=== PATIENT | female | born 1995 | race African-American/Black ===

== ENCOUNTER 2017-04-24 19:24 | Emergency (ER) | payer SELFPAY ==
[2017-04-24] MEDS ORDERED: OXYCODONE-ACETAMINOPHEN 5-325 MG TABLET PO ONE (20:29)
[2017-04-24] MEDS ORDERED: LIDOCAINE 2% JELLY 5 ML TUBE TOP ONE (20:29)
[2017-04-24] MEDS ORDERED: AMOXICILLIN TRIHYDRATE 500 MG CAPSULE PO ONE (20:29)
--- NOTE | 2017-04-24 20:35 | ER Document Report ---
ED Oral Problem - General Chief Complaint: Toothache Stated Complaint: TOOTHACHE Time Seen by Provider: 04/24/17 20:29 Mode of Arrival: Ambulatory Information source: Patient Notes: Patient is a 22-year-old female who presents to the ER today for tooth pain to the upper left tooth #12, stating that she has a "hole in it." Patient admits to a little bit of swelling but no discharge. She states that she has been alternating Tylenol and Motrin without relief. She has also been using heating packs. She does not have a dentist that she just moved to the area. She denies any fevers or chills. TRAVEL OUTSIDE OF THE [place] IN LAST 30 DAYS: No Past Medical History - General Information source: Patient - Social History Smoking Status: Unknown if Ever Smoked Family History: Reviewed & Not Pertinent Review of Systems - Review of Systems Constitutional: No symptoms reported EENT: See HPI Cardiovascular: No symptoms reported Respiratory: No symptoms reported Gastrointestinal: No symptoms reported Genitourinary: No symptoms reported Female Genitourinary: No symptoms reported Musculoskeletal: No symptoms reported Skin: No symptoms reported Hematologic/Lymphatic: No symptoms reported Neurological/Psychological: No symptoms reported Physical Exam - Vital signs Vitals: Temp Pulse Resp BP Pulse Ox 98.4 F 78 16 120/74 100 04/24/17 19:28 04/24/17 19:28 04/24/17 19:28 04/24/17 19:28 04/24/17 19:28 - Notes Notes: PHYSICAL EXAMINATION: GENERAL: Well-appearing and in no acute distress. HEAD: Atraumatic, normocephalic. EYES: Pupils equal round and reactive to light, extraocular movements intact, sclera anicteric, conjunctiva are normal. ENT: ear canals without erythema or foreign body, TMs pearly story with good bony landmarks, nares patent, oropharynx clear without exudates. Moist mucous membranes. Poor dentition, cavity to the left upper tooth #12 NECK: Normal range of motion, supple without lymphadenopathy LUNGS: CTAB and equal. No wheezes rales or rhonchi. HEART: Regular rate and rhythm without murmurs EXTREMITIES: Normal range of motion, no pitting edema. No cyanosis. NEUROLOGICAL: Cranial nerves grossly intact. Normal sensory/motor exams. PSYCH: Normal mood, normal affect. SKIN: Warm, Dry, normal turgor, no rashes or lesions noted Course - Re-evaluation Re-evalutation: 04/24/17 20:32 Patient sent home with lidocaine to apply topically to the area and I will start her on amoxicillin. Patient to follow-up with dentist. I will give her dentist in the area. - Vital Signs Vital signs: Temp Pulse Resp BP Pulse Ox 98.4 F 104 H 18 123/79 99 04/24/17 21:01 04/24/17 21:01 04/24/17 21:01 04/24/17 21:01 04/24/17 21:01 Discharge - Discharge Clinical Impression: Tooth pain Condition: Stable Disposition: HOME, SELF-CARE Instructions: Toothache ([facility]) Additional Instructions: Return immediately for any new or worsening symptoms. Follow up with dentist, call tomorrow to make followup appointment. Prescriptions: Amoxicillin 500 mg PO TID #30 capsule Benzocaine [Orajel] 1 applic MM DAILY PRN #1 tube PRN Reason: Referrals: [facility] [Provider Group] - Follow up as needed
[2017-04-24 21:02] VITALS: BP 123/79
== END 2017-04-24 21:01 | disposition home or self-care (01) ==
LOC: ER 19:24
DX: K08.89 Other specified disorders of teeth and supporting structures (principal)
CPT/HCPCS: 99282

== ENCOUNTER 2017-06-19 20:58 | Emergency (ER) | payer MEDICAID ==
[2017-06-19] MEDS ORDERED: METOCLOPRAMIDE HCL 10 MG TABLET PO ONE (21:19)
[2017-06-19 21:51] LABS: APPEARANCE,URINE CLEAR; BILIRUBIN,URINE NEGATIVE (NEGATIVE); COLOR,URINE YELLOW; GLUCOSE, URINE NEGATIVE (NEGATIVE); KETONES,URINE NEGATIVE (NEGATIVE); LEUKOCYTE ESTERASE,URINE NEGATIVE (NEGATIVE); NITRITE,URINE NEGATIVE (NEGATIVE); PROTEIN,URINE NEGATIVE (NEGATIVE); URINE SPECIFIC GRAVITY 1.036
[2017-06-19] MEDS ORDERED: ONDANSETRON ODT 4 MG TAB (6 TAB/ER DISP) PO PRN (22:44)
--- NOTE | 2017-06-19 22:45 | ER Document Report ---
ED General - General Chief Complaint: Vomiting Stated Complaint: VOMITING,STOMACH PAIN Time Seen by Provider: 06/19/17 21:14 TRAVEL OUTSIDE OF THE [place] IN LAST 30 DAYS: No - HPI Patient complains to provider of: Vomiting nausea Notes: Patient coming in for acute onset of nausea vomiting. Patient states she has been unable tolerate anything today. As I walked into the examination room patient is drinking rodney stoney. Patient states lower abdominal pain and where she is or not. Denies any dysuria or vaginal bleedingDenies fevers chills diarrhea and denies any recent antibiotics - Related Data Allergies/Adverse Reactions: acetaminophen [From Vicodin] Allergy (Verified 06/19/17 20:59) aspirin Allergy (Verified 06/19/17 20:59) hydrocodone [From Vicodin] Allergy (Verified 06/19/17 20:59) Past Medical History - Social History Smoking Status: Unknown if Ever Smoked Family History: Reviewed & Not Pertinent Patient has suicidal ideation: No Patient has homicidal ideation: No Renal/ Medical History: Denies: Hx Peritoneal Dialysis Review of Systems - Review of Systems Constitutional: No symptoms reported EENT: No symptoms reported Cardiovascular: No symptoms reported Respiratory: No symptoms reported Gastrointestinal: Nausea, Vomiting Genitourinary: No symptoms reported Female Genitourinary: No symptoms reported Musculoskeletal: No symptoms reported Skin: No symptoms reported Hematologic/Lymphatic: No symptoms reported Neurological/Psychological: No symptoms reported -: Yes All other systems reviewed and negative Physical Exam - Vital signs Vitals: Temp Pulse Resp BP Pulse Ox 98.0 F 72 16 127/71 H 100 06/19/17 21:03 06/19/17 21:03 06/19/17 21:03 06/19/17 21:03 06/19/17 21:03 Interpretation: Normal - General General appearance: Appears well, Alert - HEENT Head: Normocephalic, Atraumatic Eyes: Normal Pupils: PERRL - Respiratory Respiratory status: No respiratory distress Chest status: Nontender Breath sounds: Normal Chest palpation: Normal - Cardiovascular Rhythm: Regular Heart sounds: Normal auscultation Murmur: No - Abdominal Inspection: Normal Distension: No distension Bowel sounds: Normal Tenderness: Nontender Organomegaly: No organomegaly - Back Back: Normal, Nontender - Extremities General upper extremity: Normal inspection, Nontender, Normal color, Normal ROM , Normal temperature General lower extremity: Normal inspection, Nontender, Normal color, Normal ROM , Normal temperature, Normal weight bearing. No: Misael's sign - Neurological Neuro grossly intact: Yes Cognition: Normal Orientation: AAOx4 Leyla Coma Scale Eye Opening: Spontaneous [place] Coma Scale Verbal: Oriented Leyla Coma Scale Motor: Obeys Commands Leyla Coma Scale Total: 15 Speech: Normal Motor strength normal: LUE, RUE, LLE, RLE Sensory: Normal - Psychological Associated symptoms: Normal affect, Normal mood - Skin Skin Temperature: Warm Skin Moisture: Dry Skin Color: Normal Course - Re-evaluation Re-evalutation: 06/22/17 23:10 Initially patient stated she would not be able to give urine however afterwards patient was able to pulmonary reason for laboratory studies or check hCG. Urine hCG became negative. More likely patient has a viral etiology of abdominal exam benign patient discharged home. - Vital Signs Vital signs: Temp Pulse Resp BP Pulse Ox 98.0 F 75 20 127/56 H 98 06/19/17 21:03 06/19/17 23:25 06/19/17 23:25 06/19/17 23:25 06/19/17 23:25 - Laboratory Result Diagrams: 06/19/17 22:07 06/19/17 22:07 Laboratory results interpreted by me: 06/19/17 21:30 Urine Urobilinogen 2.0 H Discharge - Discharge Clinical Impression: Nausea & vomiting Qualifiers: Vomiting type: unspecified Vomiting Intractability: unspecified Qualified Code( s): R11.2 - Nausea with vomiting, unspecified Condition: Good Disposition: HOME, SELF-CARE Instructions: Vomiting ([facility]) Additional Instructions: Take medication as prescribed. Do believe her symptoms is more viral related. You are not . Return to ER symptoms worsen. Prescriptions: Metoclopramide HCl [Reglan] 5 mg PO Q6 #30 tablet Ondansetron [Zofran Odt] 4 mg PO Q6 PRN #30 tab.rapdis PRN Reason: For Nausea/Vomiting
[2017-06-19 23:26] VITALS: BP 127/56
== END 2017-06-19 23:25 | disposition home or self-care (01) ==
LOC: ER 20:58
DX: R11.2 Nausea with vomiting, unspecified (principal); R10.30 Lower abdominal pain, unspecified; Z32.02 Encounter for pregnancy test, result negative; Z88.6 Allergy status to analgesic agent; Z88.5 Allergy status to narcotic agent
CPT/HCPCS: 99284; 36415; 81025; 81001; J3490

== ENCOUNTER 2017-10-01 17:10 | Emergency (ER) | payer MEDICAID ==
[2017-10-01] MEDS ORDERED: LIDOCAINE 2% VISCOUS SOLN 20 ML UDCUP PO ONE (17:46)
[2017-10-01] MEDS ORDERED: MAG HYDROX/AL HYDROX/SIMETH SUSP 30 ML UDCUP PO ONE (17:46)
--- NOTE | 2017-10-01 17:46 | ER Document Report ---
ED General - General Chief Complaint: Abdominal Pain Stated Complaint: STOMACH PAIN Time Seen by Provider: 10/01/17 17:36 Notes: 22-year-old female here with complaints of burning sensation in her throat that started 3 days ago. The sensation is worse in the morning when she wakes up and immediately after drinking coffee. It also became worse after eating spaghetti with tomato sauce. She has a history of acid reflux but has not had it in 7 years. She also complains of some lower abdominal pain and back pain as well as urinary frequency. Denies any other symptoms. TRAVEL OUTSIDE OF THE [place] IN LAST 30 DAYS: No - Related Data Allergies/Adverse Reactions: acetaminophen [From Vicodin] Allergy (Verified 10/01/17 17:13) aspirin Allergy (Verified 10/01/17 17:13) hydrocodone [From Vicodin] Allergy (Verified 10/01/17 17:13) Past Medical History - Social History Smoking Status: Never Smoker Chew tobacco use (# tins/day): No Frequency of alcohol use: Occasional Drug Abuse: None Family History: Reviewed & Not Pertinent Patient has suicidal ideation: No Patient has homicidal ideation: No Renal/ Medical History: Denies: Hx Peritoneal Dialysis Past Surgical History: Reports: Hx Section Review of Systems - Review of Systems Notes: See history of present illness for pertinent positive review of systems; otherwise all review of systems have been reviewed and are negative Physical Exam - Vital signs Vitals: Temp Pulse Resp BP Pulse Ox 99.1 F 81 16 126/71 H 100 10/01/17 17:16 10/01/17 17:16 10/01/17 17:16 10/01/17 17:16 10/01/17 17:16 - Notes Notes: PHYSICAL EXAMINATION: GENERAL: Well-appearing and in no acute distress. HEAD: Atraumatic, normocephalic. EYES: Pupils equal round and reactive to light, extraocular movements intact, sclera anicteric, conjunctiva are normal. ENT: nares patent, oropharynx clear without exudates. Moist mucous membranes. NECK: Normal range of motion, supple without lymphadenopathy LUNGS: CTAB and equal. No wheezes rales or rhonchi. HEART: Regular rate and rhythm without murmurs ABDOMEN: Soft, no tenderness. No facial grimacing/wincing upon palpation. No guarding, no rebound. EXTREMITIES: Normal range of motion, no pitting edema. No cyanosis. NEUROLOGICAL: Cranial nerves grossly intact. Normal sensory/motor exams. PSYCH: Normal mood, normal affect. SKIN: Warm, Dry, normal turgor, no rashes or lesions noted Course - Re-evaluation Re-evalutation: 10/01/17 18:13 MEDICAL DECISION MAKING: Concern for acid reflux versus gastritis versus UTI Urinalysis does not show any findings for infection Patient has been given GI cocktail with prescription Pepcid Instructed follow-up PCP next day or few Patient understands and agrees to the plan of care - Vital Signs Vital signs: Temp Pulse Resp BP Pulse Ox 99.1 F 81 16 126/71 H 100 10/01/17 17:16 10/01/17 17:16 10/01/17 17:16 10/01/17 17:16 10/01/17 17:16 - Laboratory Laboratory results interpreted by me: 10/01/17 17:43 Urine Urobilinogen 2.0 H Discharge - Discharge Clinical Impression: Acid reflux Qualifiers: Esophagitis presence: esophagitis presence not specified Qualified Code(s): K21.9 - Gastro-esophageal reflux disease without esophagitis Condition: Good Disposition: HOME, SELF-CARE Additional Instructions: You were seen in the emergency department at [facility]. The urine did not show any infection. Cut down on the caffeine intake and avoid the things that trigger your acid reflux. Start taking the prescribed acid reducing medication. Please followup with your primary physician in the next few days for further management/evaluation. Please return to the emergency department for worsening of symptoms or any symptom that you deem to be concerning or life-threatening. Thank you for allowing us to be part of your care. You were seen in the ER and this documentation serves as your work/school note for your visit this evening. Prescriptions: Famotidine [Pepcid 20 mg Tablet] 20 mg PO DAILY #12 tablet
[2017-10-01 18:04] LABS: APPEARANCE,URINE CLEAR; BILIRUBIN,URINE NEGATIVE (NEGATIVE); COLOR,URINE YELLOW; GLUCOSE, URINE NEGATIVE (NEGATIVE); KETONES,URINE NEGATIVE (NEGATIVE); LEUKOCYTE ESTERASE,URINE NEGATIVE (NEGATIVE); NITRITE,URINE NEGATIVE (NEGATIVE); PROTEIN,URINE NEGATIVE (NEGATIVE); URINE SPECIFIC GRAVITY 1.024
[2017-10-01 18:15] VITALS: BP 117/68
== END 2017-10-01 18:22 | disposition home or self-care (01) ==
LOC: ER 17:10
DX: K21.9 Gastro-esophageal reflux disease without esophagitis (principal); R10.30 Lower abdominal pain, unspecified; M54.9 Dorsalgia, unspecified; R35.0 Frequency of micturition
CPT/HCPCS: 99284; 81025; 81001; J3490 ×2

== ENCOUNTER 2017-12-02 07:10 | Emergency (ER) | payer MEDICAID ==
[2017-12-02] MEDS ORDERED: NORMAL SALINE 1000 ML 1,000 ML IV ONE (08:46)
[2017-12-02] MEDS ORDERED: ONDANSETRON HCL INJ/PF 4 MG/2 ML SDV IV ONE (08:46)
--- NOTE | 2017-12-02 08:48 | ER Document Report ---
ED General - General Chief Complaint: Nausea/Vomiting Stated Complaint: VOMITING/LOW BACK PAIN Time Seen by Provider: 12/02/17 08:00 Mode of Arrival: Ambulatory Information source: Patient Notes: Patient presents complaining of 3 day history of nausea and vomiting with lower back pain. Patient denies any fever or urinary symptoms. Patient denies any vaginal bleeding or discharge. TRAVEL OUTSIDE OF THE [place] IN LAST 30 DAYS: No - HPI Onset: Other - 3 days Onset/Duration: Persistent Quality of pain: Achy Pain Level: 2 Associated symptoms: Nausea, Vomiting. denies: Chest pain, Nonproductive cough , Productive cough, Diarrhea, Fever, Sore throat Exacerbated by: Denies Relieved by: Denies Similar symptoms previously: No Recently seen / treated by doctor: No - Related Data Allergies/Adverse Reactions: acetaminophen [From Vicodin] Allergy (Verified 12/02/17 09:02) aspirin Allergy (Verified 12/02/17 09:02) hydrocodone [From Vicodin] Allergy (Verified 12/02/17 09:02) Past Medical History - General Information source: Patient - Social History Smoking Status: Never Smoker Frequency of alcohol use: None Drug Abuse: None Lives with: Family Family History: Reviewed & Not Pertinent Pulmonary Medical History: Reports: Hx Asthma Renal/ Medical History: Denies: Hx Peritoneal Dialysis Past Surgical History: Reports: Hx Section Review of Systems - Review of Systems Constitutional: No symptoms reported. denies: Fever, Recent illness EENT: No symptoms reported Cardiovascular: No symptoms reported. denies: Chest pain Respiratory: No symptoms reported. denies: Cough, Short of breath Gastrointestinal: Nausea, Vomiting. denies: Abdominal pain, Diarrhea Genitourinary: No symptoms reported. denies: Dysuria, Flank pain Female Genitourinary: No symptoms reported. denies: Vaginal discharge, Vaginal bleeding Musculoskeletal: Back pain Skin: No symptoms reported Hematologic/Lymphatic: No symptoms reported Neurological/Psychological: No symptoms reported Physical Exam - Vital signs Vitals: Temp Pulse Resp BP Pulse Ox 98.4 F 75 18 130/70 H 99 12/02/17 07:11 12/02/17 07:11 12/02/17 07:11 12/02/17 07:11 12/02/17 07:11 - General General appearance: Appears well, Alert In distress: None - HEENT Head: Normocephalic, Atraumatic Eyes: Normal Conjunctiva: Normal Nasal: Normal Mouth/Lips: Normal Mucous membranes: Normal Neck: Normal, Supple. No: Lymphadenopathy - Respiratory Respiratory status: No respiratory distress Chest status: Nontender Breath sounds: Normal. No: Rales, Rhonchi, Stridor, Wheezing Chest palpation: Normal - Cardiovascular Rhythm: Regular Heart sounds: S1 appreciated, S2 appreciated Murmur: No - Abdominal Inspection: Obese Distension: No distension Bowel sounds: Normal Tenderness: Tender - suprapubic Organomegaly: No organomegaly - Genitourinary External exam: Normal Speculum exam: Cervix closed Vaginal bleeding: None Bimanuel exam: Cervical motion tender. No: Adnexal tenderness Notes: colleen pct as standby - Back Back: Vertebra tenderness - Lower lumbar tenderness. No: Deformity/step-off, CVA tenderness - Extremities General upper extremity: Normal inspection, Normal ROM General lower extremity: Normal inspection, Normal ROM - Neurological Neuro grossly intact: Yes Cognition: Normal [place] Coma Scale Eye Opening: Spontaneous [place] Coma Scale Verbal: Oriented [place] Coma Scale Motor: Obeys Commands Leyla Coma Scale Total: 15 - Psychological Associated symptoms: Normal affect, Normal mood - Skin Skin Temperature: Warm Skin Moisture: Dry Skin Color: Normal Course - Re-evaluation Re-evalutation: 12/02/17 10:42 Patient nontoxic in appearance. No vomiting during ER stay. Patient with cervical motion tenderness on pelvic examination. Will cover for PID. Patient presents with abdominal pain without signs of peritonitis or other life- threatening or serious etiology. Patient appears stable for discharge and has been instructed to return immediately if the symptoms worsen in any way, or in 8 -12 hours if not improved for reevaluation. The patient has been instructed to return if the symptoms worsen or change in any way. - Vital Signs Vital signs: Temp Pulse Resp BP Pulse Ox 98.4 F 86 14 122/78 100 12/02/17 12:10 12/02/17 12:10 12/02/17 12:10 12/02/17 12:10 12/02/17 12:10 - Laboratory Result Diagrams: 12/02/17 08:16 12/02/17 08:16 Laboratory results interpreted by me: 12/02/17 09:09 Urine Urobilinogen 2.0 H Labs- Entire Visit 12/02/17 12/02/17 12/02/17 08:16 08:16 08:16 WBC 5.9 RBC 4.29 Hgb 12.7 Hct 36.9 MCV 86 MCH 29.6 MCHC 34.4 RDW 12.3 Plt Count 303 Seg Neutrophils % 67.3 Lymphocytes % 25.0 Monocytes % 6.8 Eosinophils % 0.6 Basophils % 0.3 Absolute Neutrophils 4.0 Absolute Lymphocytes 1.5 Absolute Monocytes 0.4 Absolute Eosinophils 0.0 Absolute Basophils 0.0 Sodium 143.0 Potassium 3.8 Chloride 107 Carbon Dioxide 26 Anion Gap 10 BUN 9 Creatinine 0.63 Est GFR ( Amer) > 60 Est GFR (Non-Af Amer) > 60 Glucose 94 Calcium 9.6 Total Bilirubin 0.5 Direct Bilirubin 0.2 Neonat Total Bilirubin Not Reportable Neonat Direct Bilirubin Not Reportable Neonat Indirect Bili Not Reportable AST 23 ALT 24 Alkaline Phosphatase 53 Total Protein 8.2 Albumin 4.5 Lipase 102.9 Serum HCG, Qual NEGATIVE Urine Color Urine Appearance Urine pH Ur Specific [place] Urine Protein Urine Glucose (UA) Urine Ketones Urine Blood Urine Nitrite Urine Bilirubin Urine Urobilinogen Ur Leukocyte Esterase Urine WBC (Auto) Urine RBC (Auto) Squamous Epi Cells Auto Urine Mucus (Auto) Urine Ascorbic Acid Trichomonas (Wet Prep) Vaginal WBC Vaginal Yeast 12/02/17 12/02/17 09:09 10:17 WBC RBC Hgb Hct MCV MCH MCHC RDW Plt Count Seg Neutrophils % Lymphocytes % Monocytes % Eosinophils % Basophils % Absolute Neutrophils Absolute Lymphocytes Absolute Monocytes Absolute Eosinophils Absolute Basophils Sodium Potassium Chloride Carbon Dioxide Anion Gap BUN Creatinine Est GFR ( Amer) Est GFR (Non-Af Amer) Glucose Calcium Total Bilirubin Direct Bilirubin Neonat Total Bilirubin Neonat Direct Bilirubin Neonat Indirect Bili AST ALT Alkaline Phosphatase Total Protein Albumin Lipase Serum HCG, Qual Urine Color YELLOW Urine Appearance SLIGHTLY-CLOUDY Urine pH 6.0 Ur Specific [place] 1.019 Urine Protein NEGATIVE Urine Glucose (UA) NEGATIVE Urine Ketones NEGATIVE Urine Blood NEGATIVE Urine Nitrite NEGATIVE Urine Bilirubin NEGATIVE Urine Urobilinogen 2.0 H Ur Leukocyte Esterase NEGATIVE Urine WBC (Auto) 1 Urine RBC (Auto) 2 Squamous Epi Cells Auto 8 Urine Mucus (Auto) RARE Urine Ascorbic Acid NEGATIVE Trichomonas (Wet Prep) NO TRICHOMONAS SEEN Vaginal WBC FEW WBCS SEEN Vaginal Yeast NO YEAST SEEN Discharge - Discharge Clinical Impression: PID (acute pelvic inflammatory disease) Nausea & vomiting Qualifiers: Vomiting type: unspecified Vomiting Intractability: non-intractable Qualified Code(s): R11.2 - Nausea with vomiting, unspecified Low back pain Qualifiers: Chronicity: acute Back pain laterality: midline Sciatica presence: without sciatica Qualified Code(s): M54.5 - Low back pain Condition: Stable Disposition: HOME, SELF-CARE Instructions: Antinausea Medication ([facility]), Intravenous (IV) Fluids ([facility]), Low Back Pain ([facility]), Pelvic Inflammatory Disease ([facility]), Vomiting ([facility]) Additional Instructions: Return immediately for any new or worsening symptoms Followup with your primary care provider, call tomorrow to make a followup appointment Prescriptions: Cyclobenzaprine HCl [Flexeril 10 Mg Tablet] 10 mg PO TID #15 tablet Doxycycline Hyclate 100 mg PO BID #28 capsule Ondansetron HCl [Zofran 4 mg Tablet] 1 - 2 tab PO Q6 PRN #15 tablet PRN Reason: Forms: Return to Work Referrals: [facility] [Provider Group] - Follow up as needed [facility] [Provider Group] - Follow up as needed
[2017-12-02 09:04] LABS: ABSOLUTE LYMPHOCYTES (AUTO) 1.5 10^3/uL (0.5-4.7); ABSOLUTE MONOCYTES (AUTO) 0.4 10^3/uL (0.1-1.4); BASOPHILS % (AUTO) 0.3 % (0-2); EOSINOPHILS % (AUTO) 0.6 % (0-6); HEMATOCRIT 36.9 % (36.0-47.0); HEMOGLOBIN 12.7 g/dL (12.0-15.5); MEAN CORPUSCULAR HEMOGLOBIN 29.6 pg (27.0-33.4); MEAN CORPUSCULAR HGB CONC 34.4 g/dL (32.0-36.0); MEAN CORPUSCULAR VOLUME 86 fl (80-97); MONOCYTES % (AUTO) 6.8 % (3-13); PLATELET COUNT 303 10^3/uL (150-450); RED BLOOD COUNT 4.29 10^6/uL (3.72-5.28); RED CELL DISTRIBUTION WIDTH 12.3 % (11.5-14.0); SEGMENTED NEUTROPHILS % (AUTO) 67.3 % (42-78); TOTAL CELLS COUNTED % (AUTO) 100 %; WHITE BLOOD COUNT 5.9 10^3/uL (4.0-10.5)
[2017-12-02 09:08] LABS: ALANINE AMINOTRANSFERASE 24 U/L (9-52); ALBUMIN 4.5 g/dL (3.5-5.0); ALKALINE PHOSPHATASE 53 U/L (38-126); ANION GAP 10 (5-19); ASPARTATE AMINO TRANSFERASE 23 U/L (14-36); BILIRUBIN,DIRECT 0.2 mg/dL (0.0-0.4); BILIRUBIN,TOTAL 0.5 mg/dL (0.2-1.3); BLOOD UREA NITROGEN 9 mg/dL (7-20); CALCIUM 9.6 mg/dL (8.4-10.2); CARBON DIOXIDE 26 mmol/L (22-30); CHLORIDE 107 mmol/L (98-107); GLUCOSE 94 mg/dL (75-110); LIPASE 102.9 U/L (23-300); POTASSIUM 3.8 mmol/L (3.6-5.0); TOTAL PROTEIN 8.2 g/dL (6.3-8.2)
[2017-12-02 09:37] LABS: APPEARANCE,URINE SLIGHTLY-CLOUDY; BILIRUBIN,URINE NEGATIVE (NEGATIVE); COLOR,URINE YELLOW; GLUCOSE, URINE NEGATIVE (NEGATIVE); KETONES,URINE NEGATIVE (NEGATIVE); LEUKOCYTE ESTERASE,URINE NEGATIVE (NEGATIVE); NITRITE,URINE NEGATIVE (NEGATIVE); PROTEIN,URINE NEGATIVE (NEGATIVE); URINE SPECIFIC GRAVITY 1.019
[2017-12-02] MEDS ORDERED: ACETAMINOPHEN 325 MG TABLET PO ONE (10:18)
[2017-12-02] MEDS ORDERED: CEFTRIAXONE INJ 250 MG VIAL IV ONE (10:19)
[2017-12-02 10:31] LABS: T.VAGINALIS (WET MOUNT) NO TRICHOMONAS SEEN; WBCS (WET MOUNT) FEW WBCS SEEN; YEAST (WET MOUNT) NO YEAST SEEN
[2017-12-02] MEDS ORDERED: LIDOCAINE 5% (700 MG) TRANSDERMAL ADH..PATCH TP ONE (10:42)
[2017-12-02 12:03] LABS: CHLAM PCR NOT DETECTED (NOT DETECT); GON PCR NOT DETECTED (NOT DETECT)
[2017-12-02 12:11] VITALS: BP 122/78
== END 2017-12-02 12:19 | disposition home or self-care (01) ==
LOC: ER 07:10
DX: N73.9 Female pelvic inflammatory disease, unspecified (principal); R11.2 Nausea with vomiting, unspecified; M54.5 Low back pain; J45.909 Unspecified asthma, uncomplicated; Z88.6 Allergy status to analgesic agent; Z88.5 Allergy status to narcotic agent
CPT/HCPCS: 99284; 96361; 96374; 96375; 36415; 87210; 83690; 84703; 85025; 80053; 81001; 87491; 87591; J3490 ×2; J2405; J7030; J0696

== ENCOUNTER 2018-02-01 21:02 | Emergency (ER) | payer MEDICAID ==
[2018-02-01] MEDS ORDERED: PSEUDOEPHEDRINE HCL 30 MG TABLET PO ONE (22:13)
[2018-02-01] MEDS ORDERED: GUAIFENESIN 600 MG TABLET.SA PO ONE (22:13)
[2018-02-01] MEDS ORDERED: IBUPROFEN 800 MG TABLET PO ONE (22:13)
[2018-02-01] MEDS ORDERED: LORATADINE 10 MG TABLET PO ONE (22:13)
--- NOTE | 2018-02-01 22:17 | ER Document Report ---
ED ENT - General Chief Complaint: Ear Pain Stated Complaint: EAR PAIN Time Seen by Provider: 02/01/18 21:38 Mode of Arrival: Ambulatory Notes: 21-year-old female presented to ED for complaint of cough cold congestion and pain with cough. She also has pain to both ears. She states is been going on and off for about a week. She states she has not followed up with her primary doctor. Patient is alert and oriented respirations regular and unlabored speaking in full sentences walks with a even steady gait. TRAVEL OUTSIDE OF THE [place] IN LAST 30 DAYS: No - HPI Patient complains to provider of: Ear problem, Nose problem Onset: Last week Onset/Duration: Persistent Quality of pain: Achy, Other - Pressure to both ears Severity: Moderate Pain Level: 3 Context: Recent Illness Location of pain: Ears, Nose, Sinus Associated symptoms: Congestion, Cough, Ear pain, Runny nose, Sinus pain, Sinus drainage, Other - Body aches. denies: Fever Similar symptoms previously: Yes Recently seen / treated by doctor: No - Related Data Allergies/Adverse Reactions: acetaminophen [From Vicodin] Allergy (Verified 12/02/17 09:02) aspirin Allergy (Verified 12/02/17 09:02) hydrocodone [From Vicodin] Allergy (Verified 12/02/17 09:02) Past Medical History - General Information source: Patient - Social History Smoking Status: Never Smoker Cigarette use (# per day): No Chew tobacco use (# tins/day): No Smoking Education Provided: No Frequency of alcohol use: Rare Drug Abuse: None Lives with: Alone - With son Family History: Reviewed & Not Pertinent Patient has suicidal ideation: No Patient has homicidal ideation: No - Past Medical History Cardiac Medical History: Reports: None Pulmonary Medical History: Reports: Hx Asthma EENT Medical History: Reports: None Neurological Medical History: Reports: None Endocrine Medical History: Reports: None Renal/ Medical History: Reports: None Malignancy Medical History: Reports: None GI Medical History: Reports: None Musculoskeletal Medical History: Reports None Skin Medical History: Reports None Psychiatric Medical History: Reports: None Traumatic Medical History: Reports: None Infectious Medical History: Reports: None Past Surgical History: Reports: Hx Section Review of Systems - Review of Systems Constitutional: Recent illness EENT: Ear pain, Nose congestion, Nose discharge, Sinus pressure, Sinus discharge Cardiovascular: No symptoms reported Respiratory: Cough Gastrointestinal: No symptoms reported Genitourinary: No symptoms reported Female Genitourinary: No symptoms reported Musculoskeletal: No symptoms reported Skin: No symptoms reported Hematologic/Lymphatic: No symptoms reported Neurological/Psychological: No symptoms reported -: Yes All other systems reviewed and negative Physical Exam - Vital signs Vitals: Temp Pulse Resp BP Pulse Ox 98.5 F 72 20 106/68 100 02/01/18 21:13 02/01/18 21:13 02/01/18 21:13 02/01/18 21:13 02/01/18 21:13 Interpretation: Normal - General General appearance: Appears well, Alert - HEENT Head: Normocephalic, Atraumatic Eyes: Normal Pupils: PERRL Ears: Normal External canal: Normal Tympanic membrane: Normal Sinus: Normal Nasal: Purulent discharge, Swelling Mouth/Lips: Normal Mucous membranes: Normal Pharynx: Post nasal drainage Neck: Normal - Respiratory Respiratory status: No respiratory distress Chest status: Nontender Breath sounds: Nonproductive cough. No: Productive cough, Rales, Rhonchi, Stridor, Wheezing Chest palpation: Normal - Cardiovascular Rhythm: Regular Heart sounds: Normal auscultation Murmur: No - Abdominal Inspection: Normal Distension: No distension Bowel sounds: Normal Tenderness: Nontender Organomegaly: No organomegaly - Back Back: Normal, Nontender - Extremities General upper extremity: Normal inspection, Nontender, Normal color, Normal ROM , Normal temperature General lower extremity: Normal inspection, Nontender, Normal color, Normal ROM , Normal temperature, Normal weight bearing. No: Misael's sign - Neurological Neuro grossly intact: Yes Cognition: Normal Orientation: AAOx4 Leyla Coma Scale Eye Opening: Spontaneous Leyla Coma Scale Verbal: Oriented Leyla Coma Scale Motor: Obeys Commands Leyla Coma Scale Total: 15 Speech: Normal Motor strength normal: LUE, RUE, LLE, RLE Sensory: Normal - Psychological Associated symptoms: Normal affect, Normal mood - Skin Skin Temperature: Warm Skin Moisture: Dry Skin Color: Normal Course - Re-evaluation Re-evalutation: 02/02/18 01:26 After performing a Medical Screening Examination, I estimate there is LOW risk for ACUTE CORONARY SYNDROME, RESPIRATORY FAILURE, SEPSIS OR MENINGITIS, thus I consider the discharge disposition reasonable. I have reevaluated this patient multiple times and no significant life threatening changes are noted. The patient and I have discussed the diagnosis and risks, and we agree with discharging home with close follow-up. We also discussed returning to the Emergency Department immediately if new or worsening symptoms occur. We have discussed the symptoms which are most concerning (e.g., changing or worsening pain, trouble swallowing or breathing, neck stiffness, fever) that necessitate immediate return. - Vital Signs Vital signs: Temp Pulse Resp BP Pulse Ox 99.0 F 89 20 120/78 99 02/01/18 22:55 02/01/18 22:55 02/01/18 22:55 02/01/18 22:55 02/01/18 22:55 Discharge - Discharge Clinical Impression: Otalgia of both ears URI (upper respiratory infection) Qualifiers: URI type: unspecified URI Qualified Code(s): J06.9 - Acute upper respiratory infection, unspecified Condition: Stable Disposition: HOME, SELF-CARE Instructions: Family Physicians / Practices Additional Instructions: UPPER RESPIRATORY ILLNESS: You have a viral infection of the respiratory passages -- a "cold." This common infection causes nasal congestion, drainage, and often sore throat and cough. It is highly contagious. The disease usually lasts about 10 to 14 days. There is no "cure" for the viral infection -- it must run its course. If there is a complication, such as bacterial infection in the nose, sinuses, middle ear, or bronchial tubes, antibiotics may be required. The antibiotics won't affect the virus. Drink plenty of fluids. A humidifier may help. An expectorant medication or decongestant may make you more comfortable. Use acetaminophen or ibuprofen for fever or aches. See the doctor if fever persists over two days, if there is any significant worsening of your symptoms, or if you simply fail to improve as expected. DECONGESTANT MEDICATION: A decongestant medicine has been suggested. Often this medicine is combined in the same tablet with an antihistamine or expectorant. This type of medicine is helpful in treating a bad cold or sinus condition, as well as in treatment of the nasal congestion of hay fever. It is not of much benefit for lung infections. Decongestant medicines are related to stimulants. They can cause an increase in blood pressure and heart rate. Persons with heart disease and high blood pressure should not take decongestants without discussing this with the physician. If you develop palpitations, chest pain, headache, or tremors, stop the medicine and consult your physician. COUGH-SUPPRESSANT & EXPECTORANT MEDICATION: You are to use a cough medication as needed for relief of symptoms. This medicine is a combination of an expectorant (to make the mucous thinner and more easily "coughed up") and a cough suppressant (to reduce the frequency of coughing). The cough-suppressant medicine is related to narcotics. You may experience mild nausea and sleepiness. Some patients who are very sensitive to narcotics may have stomach pain from this medicine. Taking the medicine with food reduces these side effects. Do not drive or work with machinery until you know how this medicine affects you. The expectorant should have no side effects. Iodine-containing expectorants (such as organidin) should not be taken by persons with active thyroid disease unless approved by your doctor. Call the doctor if you develop shortness of breath, hives, rash, itching, lightheadedness, or severe nausea and vomiting. He was treated with Claritin 10 mg Sudafed 30 mg and Mucinex 600 mg and ibuprofen 800 mg in the emergency room for your cough cold congestion and ear pain. Your ears are negative there is no signs or symptoms of an infection in your ears. These medications well help you with your cough and cold symptoms. These are all fefb-cef-astolev medications except the ibuprofen you will need to take the 200 mg 4 of them every 8 hours as needed for pain. Other medications that may help you with your symptoms are Flonase follow the instructions on the bottle and salt and soda solution gargles. Salt and soda solution 1 quart of water 1 tablespoon of salt 1 teaspoon of baking soda Mixed 3 ingredients together and boil for 1 minute Placed in a covered quart jar Use 1/2 ounce of cold solution to gargle 3 times a day FOLLOW-UP CARE: If you have been referred to a physician for follow-up care, call the physician s office for an appointment as you were instructed or within the next two days. If you experience worsening or a significant change in your symptoms, notify the physician immediately or return to the Emergency Department at any time for re-evaluation.
[2018-02-01 23:22] VITALS: BP 120/78
== END 2018-02-01 22:55 | disposition home or self-care (01) ==
LOC: ER 21:02
DX: H92.03 Otalgia, bilateral (principal); J06.9 Acute upper respiratory infection, unspecified; R05 Cough; J34.89 Other specified disorders of nose and nasal sinuses; R09.82 Postnasal drip; J45.909 Unspecified asthma, uncomplicated; R09.81 Nasal congestion; Z88.6 Allergy status to analgesic agent; Z88.5 Allergy status to narcotic agent
CPT/HCPCS: 99282; J3490 ×3

== ENCOUNTER 2018-03-19 00:46 | Emergency (ER) | payer SELFPAY ==
--- NOTE | 2018-03-19 03:46 | ER Document Report ---
ED General - General Chief Complaint: Low Back Pain Stated Complaint: BACK AND LOWER ABDOMINAL PAIN Time Seen by Provider: 03/19/18 02:35 Notes: 22-year-old female with no past medical history other than a in 2010 presents to the emergency department for right lower quadrant abdominal pain that radiates around to her back. She said the pain started about 3 days ago after using a "fire and ice" condom. She bought [id number] Azo and used it on Friday and Friday. She endorses a right lower quadrant pain is severe rated 5 out of 5. Denies nausea, vomiting, fever, lightheadedness, dizziness, shortness of breath, chest pain. She states that she did have vaginal discharge, dysuria prior to using the Azo but no longer has the symptoms. TRAVEL OUTSIDE OF THE [place] IN LAST 30 DAYS: No - Related Data Allergies/Adverse Reactions: acetaminophen [From Vicodin] Allergy (Verified 12/02/17 09:02) aspirin Allergy (Verified 12/02/17 09:02) hydrocodone [From Vicodin] Allergy (Verified 12/02/17 09:02) Past Medical History - Social History Smoking Status: Current Some Day Smoker Frequency of alcohol use: None Drug Abuse: None Family History: Reviewed & Not Pertinent Pulmonary Medical History: Reports: Hx Asthma Renal/ Medical History: Denies: Hx Peritoneal Dialysis Past Surgical History: Reports: Hx Abdominal Surgery - hernia repair, Hx Section Review of Systems - Review of Systems Constitutional: See HPI EENT: See HPI Cardiovascular: See HPI Respiratory: See HPI Gastrointestinal: See HPI Genitourinary: See HPI Female Genitourinary: No symptoms reported Musculoskeletal: See HPI Skin: No symptoms reported Hematologic/Lymphatic: No symptoms reported Neurological/Psychological: No symptoms reported Physical Exam - Vital signs Vitals: Temp Pulse Resp BP Pulse Ox 98.4 F 79 16 120/84 100 03/19/18 00:55 03/19/18 00:55 03/19/18 00:55 03/19/18 00:55 03/19/18 00:55 - Notes Notes: Reviewed vital signs and nursing note as charted by RN. CONSTITUTIONAL: Well-appearing, well-nourished, acting appropriately for age HEAD: Normocephalic, atraumatic, no swelling EYES: PERRL, Conjunctivae clear, no drainage, EOMI, no scleral icterus ENT: External ears without lesions, External auditory canal is patent, airway patent, mucous membranes pink and moist NECK: Supple, no masses CARD: Regular rate and rhythm, no murmurs, no rubs, no gallops, capillary refill < 2 seconds, symmetric pulses RESP: The lungs are clear to auscultation bilaterally, no wheezing, no rales, no rhonchi. Respiratory rate and effort are normal, normal chest excursion. No respiratory distress, no retractions, no stridor, no nasal flaring, no accessory muscle use. ABD/GI: Normal bowel sounds, non-distended, soft, tender to palpation right upper and lower quadrants worse in right lower quadrant, no rebound, no guarding , no palpable organomegaly EXT: Normal ROM in all joints, non-tender to palpation, no effusions, no edema SKIN: Normal color for age and race, warm, dry, good turgor, no acute lesions noted NEURO: No facial asymmetry, moves all extremities equally, motor and sensory function intact Course - Re-evaluation Re-evalutation: 03/19/18 03:42 22-year-old female who was laying in the position upon entry to the room presents for lower abdominal pain times 3 days. She says it started after a using a "fire and ice "condom and she took Azo for the symptoms. Did have discharge and dysuria prior to the Azo but no longer has the symptoms is just the abdominal pain. Plan to perform a pelvic exam. 03/19/18 04:10 Pelvic performed, LARISSA Self present in the room for exam. Cervix visualized nonfriable pink, non-erythematous. White discharge noted in vaginal canal and around cervix. Cervical motion tenderness elicited. Collected specimens for chlamydia, gonorrhea, and wet mount. She tolerated procedure. Treating patient with Rocephin 250 mg IM x1 and a azithromycin 1 g p.o. 1 time. Abdomen was soft with tenderness to deep palpation in the left lower quadrant that radiated around to her left flank. Due to habitus I could not palpate any masses in the left lower quadrant. Patient is afebrile, labs show a mild leukocytosis. Beta hCG negative, no suspicion for ectopic . Although patient is having left lower quadrant pain patient is afebrile, no evidence of an acute abdomen, and otherwise did not appear toxic I have a low suspicion for TOA. 03/19/18 04:52 03/19/18 04:57 - Vital Signs Vital signs: Temp Pulse Resp BP Pulse Ox 98.4 F 79 16 120/84 100 03/19/18 00:55 03/19/18 00:55 03/19/18 00:55 03/19/18 00:55 03/19/18 00:55 - Laboratory Result Diagrams: 03/19/18 04:14 03/19/18 04:14 Laboratory results interpreted by me: 03/19/18 03/19/18 03:20 04:14 WBC 11.8 H Absolute Neutrophils 8.4 H Urine Protein 30 H Urine Blood SMALL H Urine Nitrite POSITIVE H Urine Urobilinogen 2.0 H Ur Leukocyte Esterase LARGE H Discharge - Discharge Clinical Impression: BV (bacterial vaginosis), Pelvic pain UTI (urinary tract infection) Qualifiers: Urinary tract infection type: acute cystitis Hematuria presence: without hematuria Qualified Code(s): N30.00 - Acute cystitis without hematuria Condition: Good Disposition: HOME, SELF-CARE Instructions: Cephalexin ([facility]), Low Back Pain ([facility]), Urinary Tract Infection ( [facility]), Vaginosis, Bacterial ([facility]) Prescriptions: Cephalexin Monohydrate [Keflex 500 mg Capsule] 500 mg PO BID 7 Days #14 capsule Metronidazole [Flagyl 500 mg Tablet] 500 mg PO BID 7 Days #14 tablet Metronidazole [Flagyl 500 mg Tablet] 500 mg PO BID 7 Days #14 tablet
[2018-03-19] MEDS ORDERED: ACETAMINOPHEN 325 MG TABLET PO ONE (03:50)
[2018-03-19] MEDS ORDERED: AZITHROMYCIN 250 MG TABLET PO ONE (04:08)
[2018-03-19] MEDS ORDERED: IBUPROFEN 600 MG TABLET PO ONE (04:09)
[2018-03-19] MEDS ORDERED: CEFTRIAXONE INJ 250 MG VIAL IM ONE (04:09)
[2018-03-19] MEDS ORDERED: LIDOCAINE 1% INJ-PF (10 MG/ML) 30 ML SDV ONE (04:18)
[2018-03-19 04:21] LABS: BACTERIA (WET MOUNT) 3+ BACTERIA SEEN; EPITHELIALS (WET MOUNT) 4+ EPITHELIALS SEEN; RBCS (WET MOUNT) NO RBCS SEEN; T.VAGINALIS (WET MOUNT) NO TRICHOMONAS SEEN; WBCS (WET MOUNT) NO WBCS SEEN; YEAST (WET MOUNT) NO YEAST SEEN
[2018-03-19 04:23] LABS: ABSOLUTE BASOPHILS # (AUTO) 0.1 10^3/uL (0.0-0.2); ABSOLUTE LYMPHOCYTES (AUTO) 2.2 10^3/uL (0.5-4.7); ABSOLUTE MONOCYTES (AUTO) 1.1 10^3/uL (0.1-1.4); ABSOLUTE NEUT (AUTO) 8.4 10^3/uL (1.7-8.2); BASOPHILS % (AUTO) 0.5 % (0-2); EOSINOPHILS % (AUTO) 0.4 % (0-6); HEMATOCRIT 36.5 % (36.0-47.0); HEMOGLOBIN 12.5 g/dL (12.0-15.5); LYMPHOCYTES % (AUTO) 18.9 % (13-45); MEAN CORPUSCULAR HEMOGLOBIN 29.4 pg (27.0-33.4); MEAN CORPUSCULAR HGB CONC 34.3 g/dL (32.0-36.0); MEAN CORPUSCULAR VOLUME 86 fl (80-97); MONOCYTES % (AUTO) 9.1 % (3-13); PLATELET COUNT 340 10^3/uL (150-450); RED BLOOD COUNT 4.25 10^6/uL (3.72-5.28); RED CELL DISTRIBUTION WIDTH 12.5 % (11.5-14.0); SEGMENTED NEUTROPHILS % (AUTO) 71.1 % (42-78); TOTAL CELLS COUNTED % (AUTO) 100 %; WHITE BLOOD COUNT 11.8 10^3/uL (4.0-10.5)
[2018-03-19 04:38] LABS: ALANINE AMINOTRANSFERASE 22 U/L (9-52); ALBUMIN 4.7 g/dL (3.5-5.0); ALKALINE PHOSPHATASE 75 U/L (38-126); ANION GAP 13 (5-19); ASPARTATE AMINO TRANSFERASE 21 U/L (14-36); BILIRUBIN,DIRECT 0.2 mg/dL (0.0-0.4); BILIRUBIN,TOTAL 0.6 mg/dL (0.2-1.3); BLOOD UREA NITROGEN 9 mg/dL (7-20); CALCIUM 10.1 mg/dL (8.4-10.2); CARBON DIOXIDE 25 mmol/L (22-30); CHLORIDE 103 mmol/L (98-107); GLUCOSE 108 mg/dL (75-110); POTASSIUM 4.5 mmol/L (3.6-5.0); SODIUM 140.5 mmol/L (137-145); TOTAL PROTEIN 8.1 g/dL (6.3-8.2)
[2018-03-19] MEDS ORDERED: METRONIDAZOLE 500 MG TABLET PO ONE (04:39)
[2018-03-19 04:58] LABS: APPEARANCE,URINE SLIGHTLY-CLOUDY; BILIRUBIN,URINE NEGATIVE (NEGATIVE); COLOR,URINE AMBER; GLUCOSE, URINE NEGATIVE (NEGATIVE); KETONES,URINE NEGATIVE (NEGATIVE); LEUKOCYTE ESTERASE,URINE LARGE (NEGATIVE); NITRITE,URINE POSITIVE (NEGATIVE); PROTEIN,URINE 30 mg/dL (NEGATIVE); URINE SPECIFIC GRAVITY 1.013
[2018-03-19 05:23] VITALS: BP 116/74
[2018-03-19 05:54] LABS: CHLAM PCR NOT DETECTED (NOT DETECT); GON PCR NOT DETECTED (NOT DETECT)
== END 2018-03-19 05:23 | disposition home or self-care (01) ==
LOC: ER 00:46
DX: N76.0 Acute vaginitis (principal); B96.89 Other specified bacterial agents as the cause of diseases classified elsewhere; N30.00 Acute cystitis without hematuria; J45.909 Unspecified asthma, uncomplicated; F17.200 Nicotine dependence, unspecified, uncomplicated; Z88.5 Allergy status to narcotic agent
CPT/HCPCS: 99283; 96372; 36415; 87210; 85025; 81025; 80053; 81001; 87491; 87591; J3490; J0696

== ENCOUNTER 2019-03-09 22:45 | Emergency (ER) | payer SELFPAY ==
[2019-03-10 00:02] LABS: ABSOLUTE EOSINOPHILS # (AUTO) 0.1 10^3/uL (0.0-0.6); ABSOLUTE LYMPHOCYTES (AUTO) 2.9 10^3/uL (0.5-4.7); ABSOLUTE MONOCYTES (AUTO) 0.6 10^3/uL (0.1-1.4); ABSOLUTE NEUT (AUTO) 5.7 10^3/uL (1.7-8.2); BASOPHILS % (AUTO) 0.2 % (0-2); HEMATOCRIT 35.4 % (36.0-47.0); HEMOGLOBIN 12.1 g/dL (12.0-15.5); LYMPHOCYTES % (AUTO) 31.2 % (13-45); MEAN CORPUSCULAR HEMOGLOBIN 29.6 pg (27.0-33.4); MEAN CORPUSCULAR HGB CONC 34.1 g/dL (32.0-36.0); MEAN CORPUSCULAR VOLUME 87 fl (80-97); MONOCYTES % (AUTO) 6.8 % (3-13); PLATELET COUNT 356 10^3/uL (150-450); RED BLOOD COUNT 4.07 10^6/uL (3.72-5.28); RED CELL DISTRIBUTION WIDTH 12.9 % (11.5-14.0); SEGMENTED NEUTROPHILS % (AUTO) 60.8 % (42-78); TOTAL CELLS COUNTED % (AUTO) 100 %; WHITE BLOOD COUNT 9.4 10^3/uL (4.0-10.5)
[2019-03-10 00:09] LABS: APPEARANCE,URINE SLIGHTLY-CLOUDY; BILIRUBIN,URINE SMALL (NEGATIVE); COLOR,URINE AMBER; GLUCOSE, URINE NEGATIVE (NEGATIVE); KETONES,URINE 20 mg/dL (NEGATIVE); LEUKOCYTE ESTERASE,URINE NEGATIVE (NEGATIVE); NITRITE,URINE NEGATIVE (NEGATIVE); PROTEIN,URINE 100 mg/dL (NEGATIVE); URINE SPECIFIC GRAVITY 1.042
[2019-03-10 00:19] LABS: ALBUMIN 4.7 g/dL (3.5-5.0); ALKALINE PHOSPHATASE 74 U/L (38-126); ANION GAP 11 (5-19); ASPARTATE AMINO TRANSFERASE 24 U/L (14-36); BILIRUBIN,DIRECT 0.1 mg/dL (0.0-0.4); BILIRUBIN,TOTAL 0.4 mg/dL (0.2-1.3); BLOOD UREA NITROGEN 6 mg/dL (7-20); CALCIUM 9.7 mg/dL (8.4-10.2); CARBON DIOXIDE 26 mmol/L (22-30); CHLORIDE 102 mmol/L (98-107); GLUCOSE 89 mg/dL (75-110); TOTAL PROTEIN 8.2 g/dL (6.3-8.2)
--- NOTE | 2019-03-10 02:06 | ER Document Report ---
ED GI/ - General Chief Complaint: Lower Abdominal Pain Stated Complaint: LOWER ABDOMINAL PAIN Time Seen by Provider: 03/10/19 02:01 Mode of Arrival: Ambulatory Information source: Patient Notes: Patient is an otherwise healthy 23-year-old female presenting to the emergency department chief complaint of right lower quadrant abdominal pain that is been ongoing for 2 days. She also reports intermittent abnormal vaginal bleeding that is been ongoing for 2 months. She denies any nausea, vomiting, diarrhea or fevers. She is also reporting some pain with intercourse. She states she has had ovarian cysts in the past and this feels similar. She denies any abnormal vaginal discharge. TRAVEL OUTSIDE OF THE [place] IN LAST 30 DAYS: No - Related Data Allergies/Adverse Reactions: aspirin Allergy (Verified 12/02/17 09:02) hydrocodone [From Vicodin] Allergy (Verified 12/02/17 09:02) Past Medical History - General Information source: Patient Last Menstrual Period: 02/15/19 - Social History Smoking Status: Current Every Day Smoker Frequency of alcohol use: Occasional Drug Abuse: None Family History: Reviewed & Not Pertinent Patient has suicidal ideation: No Patient has homicidal ideation: No Pulmonary Medical History: Reports: Hx Asthma Renal/ Medical History: Denies: Hx Peritoneal Dialysis Past Surgical History: Reports: Hx Abdominal Surgery - hernia repair, Hx Section Review of Systems - Review of Systems Constitutional: No symptoms reported EENT: No symptoms reported Cardiovascular: No symptoms reported Respiratory: No symptoms reported Gastrointestinal: No symptoms reported Genitourinary: No symptoms reported Female Genitourinary: See HPI Musculoskeletal: No symptoms reported Skin: No symptoms reported Hematologic/Lymphatic: No symptoms reported Neurological/Psychological: No symptoms reported Physical Exam - Vital signs Vitals: Temp Pulse Resp BP Pulse Ox 98.1 F 71 18 122/69 100 03/09/19 22:51 03/09/19 22:51 03/09/19 22:51 03/09/19 22:51 03/09/19 22:51 - Notes Notes: PHYSICAL EXAMINATION: GENERAL: Well-appearing, well-nourished and in no acute distress. HEAD: Atraumatic, normocephalic. EYES: Pupils equal round and reactive to light, extraocular movements intact, conjunctiva are normal. ENT: Nares patent, oropharynx clear without exudates. Moist mucous membranes. NECK: Normal range of motion, supple without lymphadenopathy LUNGS: Breath sounds clear to auscultation bilaterally and equal. No wheezes rales or rhonchi. HEART: Regular rate and rhythm without murmurs ABDOMEN: Soft, nondistended abdomen. Mild tenderness to the right lower quadrant. No guarding, no rebound. No masses appreciated. Female : No CVA tenderness. Musculoskeletal: Normal range of motion, no pitting or edema. No cyanosis. NEUROLOGICAL: Cranial nerves grossly intact. Normal speech, normal gait. Norm al sensory, motor exams PSYCH: Normal mood, normal affect. SKIN: Warm, Dry, normal turgor, no rashes or lesions noted. Course - Re-evaluation Re-evalutation: Laboratory 03/09/19 03/09/19 03/09/19 23:20 23:20 23:20 WBC 9.4 RBC 4.07 Hgb 12.1 Hct 35.4 L MCV 87 MCH 29.6 MCHC 34.1 RDW 12.9 Plt Count 356 Lymph % (Auto) 31.2 [place] % (Auto) 6.8 Eos % (Auto) 1.0 Baso % (Auto) 0.2 Absolute Neuts (auto) 5.7 Absolute Lymphs (auto) 2.9 Absolute Monos (auto) 0.6 Absolute Eos (auto) 0.1 Absolute Basos (auto) 0.0 Seg Neutrophils % 60.8 Sodium 139.2 Potassium 4.0 Chloride 102 Carbon Dioxide 26 Anion Gap 11 BUN 6 L Creatinine 0.63 Est GFR ( Amer) > 60 Est GFR (MDRD) Non-Af > 60 Glucose 89 Calcium 9.7 Total Bilirubin 0.4 Direct Bilirubin 0.1 Neonat Total Bilirubin Not Reportable Neonat Direct Bilirubin Not Reportable Neonat Indirect Bili Not Reportable AST 24 ALT 21 Alkaline Phosphatase 74 Total Protein 8.2 Albumin 4.7 Lipase 95.9 Urine Color CLAUDIA Urine Appearance SLIGHTLY-CLOUDY Urine pH 5.0 Ur Specific [place] 1.042 Urine Protein 100 H Urine Glucose (UA) NEGATIVE Urine Ketones 20 H Urine Blood NEGATIVE Urine Nitrite NEGATIVE Urine Bilirubin SMALL H Urine Urobilinogen 4.0 H Ur Leukocyte Esterase NEGATIVE Urine WBC (Auto) 1 Urine RBC (Auto) 4 Squamous Epi Cells Auto 12 Urine Mucus (Auto) MANY Urine Ascorbic Acid 40 H Urine HCG, Qual NEGATIVE Transvaginal US 03/10/19 02:41 IMPRESSION: Unremarkable pelvic ultrasound copyright 2011 [employer]- All Rights Reserved - Vital Signs Vital signs: Temp Pulse Resp BP Pulse Ox 98.0 F 67 16 114/64 100 03/10/19 03:11 03/10/19 03:11 03/10/19 03:11 03/10/19 03:11 03/10/19 03:11 - Laboratory Result Diagrams: 03/09/19 23:20 03/09/19 23:20 Laboratory results interpreted by me: 03/09/19 03/09/19 03/09/19 23:20 23:20 23:20 Hct 35.4 L BUN 6 L Urine Protein 100 H Urine Ketones 20 H Urine Bilirubin SMALL H Urine Urobilinogen 4.0 H Urine Ascorbic Acid 40 H Discharge - Discharge Clinical Impression: Dysfunctional vaginal bleeding Abdominal pain Qualifiers: Abdominal location: unspecified location Qualified Code(s): R10.9 - Unspecified abdominal pain Condition: Stable Disposition: HOME, SELF-CARE Additional Instructions: Abdominal Pain There are many causes of abdominal pain. Pain can mean a serious problem requiring surgery (such as appendicitis). It can also be an innocent problem that goes away on its own (such as a viral infection). Often, time must pass to determine the cause of pain. The physician does not feel that hospitalization is necessary, at present. Things may change within the next 24 hours. Call the doctor or come back for re- examination if any problems occur, such as: (1) Pain that becomes more severe, steady, or becomes concentrated in one specific area. Also, pain that is more severe with movement or coughing. (2) Vomiting that persists or becomes more frequent. (3) Blood in the vomitus, urine, or bowel movements. Blood in the stool may have a tarry or black appearance. (4) Shaking chills or fever greater than 100 degrees F. (5) The abdomen becomes more distended or swollen. (6) Bowel movements cease. (7) Failure to improve as expected. Observation for Appendicitis At this time, the abdominal pain does not seem to be appendicitis. Our next "test" will be passage of time. If you have early appendicitis, signs will appear to help us make the diagnosis. Most of the time, the pain goes away. In these cases, the pain is usually due to a virus in the lymph glands near the appendix, or due to an ovarian cyst or ovulation. Unless the pain is gone, you should come back for a recheck. This is usually done in 8 to 12 hours. Be sure you understand your follow-up instructi ons. Come back immediately if: (1) the pain becomes much more severe and sharply increases with movement or coughing, (2) vomiting becomes frequent, (3) there is blood in the vomit, urine, or bowel movements, (4) there are shaking chills or fever, or (5) the abdomen becomes more distended or swollen. Your work-up today in the emergency department was unremarkable. The transvaginal ultrasound performed did not show any obvious cause for your discomfort. Please follow-up with your primary care provider or [facility]. Return to the emergency department if you develop any of the above warning signs. Referrals: BRADLEY MCGINNIS I, [Primary Care Provider] - Follow up as needed [facility] [Provider Group] - Follow up as needed [facility] [Provider Group] - Follow up as needed
--- NOTE | 2019-03-10 03:49 | RADIOLOGY REPORT (SQ) ---
EXAM DESCRIPTION: US PELVIS TRANSVAGINAL COMPLETED DATE/TME: 03/10/2019 02:41 CLINICAL HISTORY: 23 years, Female, RLQ pain COMPARISON: None. TECHNIQUE: Transvaginal pelvic ultrasound with grayscale and color images. LIMITATIONS: None. FINDINGS: The uterus is anteverted and measures 8.1 x 4.2 x 3.6 cm. The endometrium is normal in thickness measuring up to 4 mm. The right ovary measures 2.4 x 1.8 x 1.7 cm. The left ovary measures 2.3 x 1.4 x 1.5 cm. Both ovaries demonstrate normal flow. No abnormal adnexal masses detected. No significant free fluid is identified. IMPRESSION: Unremarkable pelvic ultrasound copyright 2010 [employer]- All Rights Reserved
[2019-03-10] MEDS ORDERED: ACETAMINOPHEN 325 MG TABLET PO ONE (04:02)
[2019-03-10 05:01] VITALS: BP 119/58
== END 2019-03-10 04:35 | disposition home or self-care (01) ==
LOC: ER 22:45
DX: N93.8 Other specified abnormal uterine and vaginal bleeding (principal); R10.31 Right lower quadrant pain; F17.200 Nicotine dependence, unspecified, uncomplicated; Z88.6 Allergy status to analgesic agent
CPT/HCPCS: 36415; 76830; 80053; 81001; 81025; 83690; 85025; 93976; 99284

== ENCOUNTER 2019-09-24 21:42 | Emergency (ER) | payer SELFPAY ==
[2019-09-24 21:52] VITALS: BP 131/86
[2019-09-24] MEDS ORDERED: DEXAMETHASONE SOD PHOS INJ 10 MG/1 ML VIAL IM ONE (22:42)
[2019-09-24] MEDS ORDERED: FAMOTIDINE 20 MG TABLET PO ONE (22:43)
--- NOTE | 2019-09-24 22:43 | ER Document Report ---
HPI - HPI Time Seen by Provider: 09/24/19 22:35 Pain Level: Denies Notes: Otherwise healthy 24-year-old female presents the emergency department chief complaint of possible allergic reaction. Patient reports that she has an allergy to aspirin and her [id number] gave her a medication that contained aspirin. She states that she started having itching and hives. She states she took Benadryl which helped her symptoms but she wanted to come to the emergency department for evaluation. She denies any difficulty swallowing or sensation of throat swelling. She has never had anaphylaxis in the past. - ROS Systems Reviewed and Negative: Yes All other systems reviewed and negative - REPRODUCTIVE LMP: 08/30/2019 Reproductive: DENIES: : - DERM Notes: scattered hives Past Medical History - General Information source: Patient - Social History Smoking Status: Current Every Day Smoker Frequency of alcohol use: None Drug Abuse: None Family History: Reviewed & Not Pertinent Patient has homicidal ideation: No Pulmonary Medical History: Reports: Hx Asthma Renal/ Medical History: Denies: Hx Peritoneal Dialysis Past Surgical History: Reports: Hx Abdominal Surgery - hernia repair, Hx Section Vertical Provider Document - CONSTITUTIONAL Notes: PHYSICAL EXAMINATION: GENERAL: Well-appearing, well-nourished and in no acute distress. HEAD: Atraumatic, normocephalic. EYES: Pupils equal round extraocular movements intact, conjunctiva are normal. ENT: Nares patent NECK: Normal range of motion LUNGS: No respiratory distress Musculoskeletal: Normal range of motion NEUROLOGICAL: Normal speech, normal gait. PSYCH: Normal mood, normal affect. SKIN: small hives to chest and bilateral upper arms - INFECTION CONTROL TRAVEL OUTSIDE OF THE [place] IN LAST 30 DAYS: No Course - Re-evaluation Re-evalutation: Patient given dose of Pepcid and prednisone here in the emergency department. She is already taken Benadryl. She has no evidence of anaphylaxis. She has had a history of allergic reactions to aspirin. I will also give her a prescription for EpiPen to keep with her. Patient given strict ED return precautions, patient verbalized understanding and agreement with same. - Vital Signs Vital signs: Temp Pulse Resp BP Pulse Ox 99.1 F 73 16 131/86 H 100 09/24/19 22:29 09/24/19 21:50 09/24/19 21:50 09/24/19 21:50 09/24/19 21:50 Discharge - Discharge Clinical Impression: Allergic reaction Qualifiers: Encounter type: initial encounter Qualified Code(s): T78.40XA - Allergy, unspecified, initial encounter Condition: Stable Disposition: HOME, SELF-CARE Additional Instructions: Please take medications as prescribed. Also take Benadryl 50 mg every 6 hours. Try to avoid hot showers. Prescriptions: Prednisone [Deltasone 20 mg Tablet] 3 tab PO DAILY 5 Days #15 tablet Epinephrine [Epipen 2-Jacky] 0.3 mg IM ONCE PRN #1 packet PRN Reason: Famotidine [Pepcid 20 mg Tablet] 40 mg PO DAILY #10 tablet Referrals: BRADLEY MCGINNIS DO [Primary Care Provider] - Follow up as needed
== END 2019-09-24 23:07 | disposition home or self-care (01) ==
LOC: ER 21:42
DX: T78.40XA Allergy, unspecified, initial encounter (principal); L29.9 Pruritus, unspecified; F17.200 Nicotine dependence, unspecified, uncomplicated; X58.XXXA Exposure to other specified factors, initial encounter
CPT/HCPCS: 99283; 96372; J1100

== ENCOUNTER 2020-03-03 09:09 | Emergency (ER) | payer SELFPAY ==
[2020-03-03 09:25] VITALS: BP 119/77
== END 2020-03-03 10:21 | disposition left against medical advice (07) ==
LOC: ER 09:09
DX: Z53.21 Procedure and treatment not carried out due to patient leaving prior to being seen by health care provider (principal); K08.89 Other specified disorders of teeth and supporting structures

== ENCOUNTER 2020-03-06 18:41 | Emergency (ER) | payer SELFPAY ==
[2020-03-06] MEDS ORDERED: LIDOCAINE 1% INJ-PF (10 MG/ML) 30 ML SDV INJ ONE (19:35)
--- NOTE | 2020-03-06 19:38 | ER Document Report ---
ED Oral Problem - General Chief Complaint: Toothache Stated Complaint: ABSCESS Time Seen by Provider: 03/06/20 19:35 Primary Care Provider: BRADLEY MCGINNIS DO [NO LOCAL MD] - Follow up as needed Mode of Arrival: Ambulatory Information source: Patient Notes: 24-year-old female presents to ED for dental pain. She states she had dental pain about 2 weeks ago she went to the dentist because she had a hole in her tooth. She states they told her she had an abscess gave her amoxicillin ibuprofen 800 and tramadol. She states she is taking all of the tramadol she is taking all of the amoxicillin she still has the ibuprofen but the abscess is back and she cannot get into the dentist on April. She does have an abscess to the front of the lower left jaw again. Patient is alert oriented respirations regular nonlabored speaking in full sentences. Constitutional: Negative for fever. HENT: Dental pain with abscess to the left lower jaw Eyes: Negative for visual changes. Cardiovascular: Negative for chest pain. Respiratory: Negative for shortness of breath. Gastrointestinal: Negative for abdominal pain, vomiting or diarrhea. Genitourinary: Negative for dysuria. Musculoskeletal: Negative for back pain. Skin: Negative for rash. Neurological: Negative for headaches, weakness or numbness. 10 point ROS negative except as marked above and in HPI. PHYSICAL EXAMINATION: GENERAL: Well-appearing, well-nourished and in no acute distress. HEAD: Atraumatic, normocephalic. EYES: Pupils equal round extraocular movements intact, conjunctiva are normal. ENT: Pain and abscess to the left lower jaw NECK: Normal range of motion LUNGS: No respiratory distress Musculoskeletal: Normal range of motion NEUROLOGICAL: Normal speech, normal gait. PSYCH: Normal mood, normal affect. SKIN: Warm, Dry, normal turgor, no rashes or lesions noted. TRAVEL OUTSIDE OF THE [place] IN LAST 30 DAYS: No - HPI Patient complains to provider of: Swelling of jaw - Cyst left lower jaw, Toothache Onset: Other - Weeks ago and again now Onset: Gradual Quality of pain: Sharp, Throbbing Severity: Moderate Pain Level: 2 Associated symptoms: Toothache Worsened by: Nothing - Abscess Similar symptoms previously: Yes Recently seen / treated by doctor/dentist: Yes - Related Data Allergies/Adverse Reactions: aspirin Allergy (Verified 03/03/20 09:32) hydrocodone [From Vicodin] Allergy (Verified 03/03/20 09:32) Past Medical History - General Information source: Patient - Social History Smoking Status: Former Smoker Frequency of alcohol use: Occasional Drug Abuse: None Family History: Reviewed & Not Pertinent Patient has suicidal ideation: No Patient has homicidal ideation: No - Past Medical History Cardiac Medical History: Reports: None Pulmonary Medical History: Reports: Hx Asthma EENT Medical History: Reports: None Neurological Medical History: Reports: None Endocrine Medical History: Reports: None Renal/ Medical History: Reports: None Malignancy Medical History: Reports: None GI Medical History: Reports: None Musculoskeletal Medical History: Reports None Skin Medical History: Reports None Psychiatric Medical History: Reports: None Traumatic Medical History: Reports: None Infectious Medical History: Reports: None Past Surgical History: Reports: Hx Abdominal Surgery - hernia repair, Hx Section Physical Exam - Vital signs Vitals: Temp Pulse Resp BP Pulse Ox 98.8 F 72 16 132/84 H 99 03/06/20 18:56 03/06/20 18:56 03/06/20 18:56 03/06/20 18:56 03/06/20 18:56 Course - Re-evaluation Re-evalutation: 03/06/20 19:57 Left lower jaw was injected with 3 cc of 1% lidocaine with an 18-gauge needle. I did was able to remove some of the pulse with the 18-gauge needle but I used a 11 blade to finish the I&D of the abscess. Patient was started on clindamycin discharged home with prescription for clindamycin. She was also instructed to continue take her 800 ibuprofen every 8 hours that she already has at home. She states she also has viscous lidocaine at home. She was instructed on use of that as well as gargling with warm salt soda solution. Patient verbalized understanding and agreement with treatment plan. - Vital Signs Vital signs: Temp Pulse Resp BP Pulse Ox 98.4 F 80 16 124/72 99 03/06/20 19:54 03/06/20 19:54 03/06/20 19:54 03/06/20 19:54 03/06/20 19:54 Discharge - Discharge Clinical Impression: Pain due to dental caries Condition: Stable Disposition: HOME, SELF-CARE Additional Instructions: TOOTHACHE: Your pain is due to dental decay. The tooth must be repaired in order for you to feel better. You will, therefore, be referred to a dentist. We do not have dentists on the staff at [facility]. Severe swelling or drainage around a tooth usually means a dental abscess. This also requires evaluation and treatment by the dentist, but antibiotics may be prescribed while awaiting dental treatment. You should be rechecked immediately if you develop major swelling of the face, increasing pain, a lump in the jaw or gums, headache, difficulty swallowing, or fever. CLINDAMYCIN: You have been given a prescription for the antibiotic clindamycin. It is often prescribed for infections in the mouth, such as dental infections or abscesses, and for skin infections due to MRSA. It's important that you take all the medication, unless instructed otherwise by your physician. Failure to complete the entire course can result in relapse of your condition. Common side effects of antibiotics include nausea, intestinal cramping, or diarrhea. Women may develop vaginal yeast infections, and babies can get yeast (thrush) in the mouth following the use of antibiotics. Contact your physician if you develop significant side effects from this medication. Allergy to this antibiotic can result in hives, wheezing, faintness, or itching. If symptoms of allergy occur, stop the medication and call the doctor. Salt and soda solution gargle 1 quart of water 1 tablespoon of salt 1 teaspoon of baking soda Mixed 3 ingredients together and boil for 1 minute Placed in a covered quart jar Use 1/2 ounce of cold solution to gargle 3 times a day Ibuprofen Ibuprofen is an excellent, safe drug for pain control. In addition, it has potent antiinflammatory effects which are beneficial, especially in the treatment of injuries, arthritis, or tendonitis. It's best to take ibuprofen with food. Persons with ulcer disease or allergy to aspirin should notify their physician of this before taking ibuprofen. Take the medication exactly as prescribed. Don't take additional doses unless instructed to do so by your doctor. If you develop wheezing, shortness of breath, hives, faintness, stomach pain, vomiting, or dark black stools, return for re-evaluation at once. FOLLOW-UP CARE: You have been referred for follow-up care to the dentists listed below. Call the dentists office for an appointment as you were instructed or within the next two days. If you experience worsening or a significant change in your symptoms, notify the physician immediately or return to the Emergency Department at any time for re-evaluation. [facility] [address] [place] [address] Replaced By [facility] [address] [facility] [address] [facility] [address] [email or web address] [address] [place] [address] Friday- 8:00am to 5:00 pm [facility]. Charges based on income and family size and accepts Medicare, Medicaid, and Insurances Will pull molars [facility] Student [facility] [id number] Hours of Operation 8:00 am - 4:30 pm weekdays The following dental offices accept Medicaid: [facility] Dr. Hayes Dr. Blum Dr. Han Dr. Patino Jean Abdullahi Lutsavage, and [facility] Dr. Barrow ([place]) Dr. Shaw ([place]) [facility] Drs. Flores and Gary ([place]) Dr. Huynh ([place]) [facility] Dr. Anaya ([place]) Drs. Salcedo and ([place]) Medicaid Care Line Prescriptions: Clindamycin HCl 300 mg PO TID #30 capsule Referrals: BRADLEY MCGINNIS I, [NO LOCAL MD] - Follow up as needed
[2020-03-06] MEDS ORDERED: CLINDAMYCIN HCL 150 MG CAPSULE PO ONE (19:41)
[2020-03-06 19:55] VITALS: BP 124/72
== END 2020-03-06 19:54 | disposition home or self-care (01) ==
LOC: ER 18:41
DX: K02.9 Dental caries, unspecified (principal); K05.319 Chronic periodontitis, localized, unspecified severity
CPT/HCPCS: 99283; 41800; J3490